=== PATIENT | female | born 1995 | race Caucasian/White ===

== ENCOUNTER 2017-02-18 16:18 | Emergency (ER) | payer OTHER ==
[~2017-02-18] VITALS: Ht 147.3 cm; Wt 51.8 kg
[~2017-02-18 16:18] MED LIST: BUSP5TAB2 PO; VENL37.52 PO
[2017-02-18 16:21] VITALS: BP 121/83
== END 2017-02-18 17:38 | disposition home or self-care (01) ==
LOC: ED 17:32
DX: F32.0 Major depressive disorder, single episode, mild (principal)
CPT/HCPCS: 99284

== ENCOUNTER 2018-07-15 22:02 | Emergency (ER) | payer OTHER ==
[~2018-07-15] VITALS: Ht 160 cm; Wt 54.0 kg
[2018-07-15] MEDS ORDERED: LORazepam 1MG TABLET ONE (22:48)
[2018-07-15] MEDS ORDERED: LORazepam 1MG TABLET PO ONE (23:00)
[2018-07-15 23:59] VITALS: BP 116/74
== END 2018-07-16 00:02 | disposition home or self-care (01) ==
LOC: ED 23:59
DX: F41.1 Generalized anxiety disorder (principal); R06.4 Hyperventilation; F32.9 Major depressive disorder, single episode, unspecified
CPT/HCPCS: 99284

== ENCOUNTER 2019-01-20 16:59 | Emergency (ER) | payer OTHER ==
[~2019-01-20] VITALS: Ht 152.4 cm; Wt 54.0 kg
[2019-01-20 17:01] VITALS: BP 123/70
--- NOTE | 2019-01-20 17:10 | NUR ---
BIB [facility] AND [facility] W/ CO "I HAD A PANIC ATTACK FOR A MINUTE AND WAS FEELING SUICIDAL", "I FEEL OKAY NOW, I JUST WANT TO GO BACK TO THE HOTEL". PT [facility] BUT DOES NOT FEEL SAFE AT THIS LOCATION, "ITS KIND OF SCARY AND I HAVEN'T HAD ANY FOOD". [facility] REPORTS THAT PT LOCKED HERSELF IN THE BATHROOM W/ HER SWEATPANTS AROUND HER NECK. NO BRUISING NOTED, PT DENIES PAIN. AIRWAY APPEARS PATENT; PT MANAGING OWN SECRETIONS. HX OF BORDERLINE PERSONALITY DISORDER, NON-COMPLIANT WITH MEDICATIONS. PT CALM AND COMPLIANT WITH STAFF. [facility] AT BEDSIDE. ROOM SECURE, BELONGINGS REMOVED FROM ROOM AND PLACED IN LOCKER (09/23). SITTER REQUESTED. [facility] AT BEDSIDE AT THIS TIME. PT AWARE OF NEED FOR UA AND AGREES TO MAKE ATTEMPT.
--- NOTE | 2019-01-20 17:12 | NUR ---
PER ERP, MEAL TRAY ORDERED AND SW CONTACTED FOR CONSULT
--- NOTE | 2019-01-20 17:36 | NUR ---
SI COMPLIANT MEAL TRAY PROVIDED. PT CALM AND COOPERATIVE. SW AT BEDSIDE. ROOM SECURE. SITTER PRESENT.
--- NOTE | 2019-01-20 18:10 | NUR ---
PT DENIES SI/HI TO ERP AND TO SW. POC IS DC; PT AGREES WITH POC. PT PROVIDED CLEAN, DRY SHIRT, PANTS AND SWEATSHIRT. PT REFUSING PANTS AND SHIRT. DC EDUCATION PROVIDED, PT DEMONSTRATES UNDERSTANDING. PT PROVIDED [employer] FOR SAFE TRANSPORT.
== END 2019-01-20 18:17 | disposition home or self-care (01) ==
LOC: ED 18:00
DX: F41.1 Generalized anxiety disorder (principal); F32.9 Major depressive disorder, single episode, unspecified
CPT/HCPCS: 99284